=== PATIENT | male | born 1970 | race Caucasian/White ===

== ENCOUNTER 2016-09-26 10:00 | Inpatient (IN) | payer BC ==
[2016-09-26] MEDS ORDERED: Sodium Chloride 0.9% 10 ML Syringe FLUSH PRN ×2 (10:32→15:30)
--- NOTE | 2016-09-26 10:40 | EDM.PDOC ---
ED HISTORY OF PRESENT ILLNESS - General Chief Complaint: Cardiovascular Problem Stated Complaint: SOB, COUGHING, CARDIO CONVERSION YESTERDAY Time Seen by Provider: 09/26/16 10:12 Source: Reports: Patient, Family, RN notes reviewed History Limitations: Reports: No limitations - History of Present Illness INITIAL COMMENTS - FREE TEXT/NARRATIVE: 46-year-old gentleman presents emergency department he complained of shortness of breath, he recently underwent cardioversion yesterday has known atrial fibrillation/flutter he had been in this rhythm for over 6 weeks he is on anticoagulant medication eliquis, he states he did well following his procedure he had a known history of intracardiac blood clot prior to this procedure he is unsure of details we do not have those records we will attempt to obtain. This particular episode of shortness of breath and cough started at 2:00 this morning was worse with exertion does become diaphoretic no nausea vomiting no chest pain no other GI symptoms, did have difficulty with anesthesia following the procedure possibility of aspiration - Related Data Allergies/ADRs: Allergies Allergy/AdvReac Type Severity Reaction Status Date / Time No Known Allergies Allergy Verified 09/03/13 08:38 Home Meds: Home Meds MV-Mn/Iron/FA/Herbal Cmplx#[id number] [Megavite Caplet] 1 tab PO 09/03/13 [History] Apixaban [Eliquis] 5 mg PO BID 09/26/16 [History] Cetirizine [ZyrTEC] 09/26/16 [History] Metoprolol Succinate [Metoprolol Succinate] 100 mg PO DAILY 09/26/16 [History] Verapamil HCl [Verapamil Sr] 120 mg PO DAILY 09/26/16 [History] Past Medical History Cardiovascular History: Reports: Arrhythmia (Atrial fib/flutter), High cholesterol, Hypertension - Past Surgical History Other Cardiovascular Surgeries/Procedures: atrial flutter with cardiovert Social & Family History - Tobacco Use Smoking Status *Q: Never Smoker Second Hand Smoke Exposure: No - Caffeine Use Caffeine Use: Reports: None - Alcohol Use Days Per Week of Alcohol Use: 0 - Recreational Drug Use Recreational Drug Use: No ED ROS GENERAL - Review of Systems Review Of Systems: See Below Constitutional: Reports: diaphoresis. Denies: fever, chills HEENT: Reports: No symptoms Respiratory: Reports: shortness of breath, cough. Denies: sputum Cardiovascular: Reports: Dyspnea on exertion. Denies: Chest pain GI/Abdominal: Reports: No symptoms : Reports: no symptoms Musculoskeletal: Reports: no symptoms Skin: Reports: no symptoms Neurological: Reports: no symptoms ED EXAM, GENERAL - Physical Exam Exam: See Below Free Text/Narrative:: General: Male, not in any distress, alert and oriented x3 HEENT: head is atraumatic normocephalic, eyes pupils equal round reactive to light and accommodation sclera clear no conjunctivitis appreciated. Ears tympanic membranes clear and can landmarks and light reflex are present bilaterally canals are clear. Nose no septal deviation, nares are clear, no blood present. Mouth mucosa is moist and pink no erythema or exudate noted in soft palate, tongue is midline uvula is midline, dentition is intact. Neck: Supple no thyromegaly no tracheal deviation. Nodes: Cervical nodes subclavicular nodes nontender no palpable lymphadenopathy noted. Lungs: Crackles mid to lower lung tena bilaterally CV: Regular rate and rhythm S1 and S2 appreciated no murmurs rubs or gallops noted. Abdomen: Soft, nontender, no palpable masses or organomegaly appreciated, no distention no guarding bowel sounds are present, . Neuro: Cranial nerves II through XII grossly intact Skin: Warm and dry, intact Extremities: No lower extremity edema appreciated, Course - Vital Signs Last Recorded V/S: Last Vital Signs Temp 96.3 F 09/26/16 10:16 Pulse 80 09/26/16 11:30 Resp 24 H 09/26/16 11:30 BP 149/112 H 09/26/16 12:36 Pulse Ox 93 L 09/26/16 11:30 - Orders/Labs/Meds Orders: Active Orders 24 hr Category Date Time Status Cardiac Monitoring [RC] .As Directed Care 09/26/16 10:32 Active EKG Documentation Completion [RC] ASDIRECTED Care 09/26/16 10:33 Active Peripheral IV Care [RC] . DIRECTED Care 09/26/16 10:33 Active Ang Chest [CT] Stat Exams 09/26/16 11:11 Taken Chest 1V Frontal [CR] Stat Exams 09/26/16 10:33 Taken Iopamidol [Isovue-370 (76%)] Med 09/26/16 11:45 Active 100 ml IV . DIRECTED Sodium Chloride 0.9% [Normal Saline] 100 ml Med 09/26/16 11:45 Active IV ASDIRECTED Sodium Chloride 0.9% [Saline Flush] Med 09/26/16 10:32 Active 10 ml FLUSH ASDIRECTED PRN Peripheral IV Insertion Adult [OM.PC] Stat Oth 09/26/16 10:32 Ordered Saline Lock Insert [OM.PC] Stat Oth 09/26/16 10:32 Ordered EKG 12 Lead [EK] Stat Ther 09/26/16 10:33 Ordered Medication Orders Sodium Chloride (Normal Saline) 100 mls @ 4 mls/sec IV ASDIRECTED CHELSI Stop: 09/26/16 23:00 Last Admin: 09/26/16 11:54 Dose: 4 mls/sec Iopamidol (Isovue-370 (76%)) 100 ml IV . DIRECTED CHELSI Stop: 09/26/16 23:00 Last Admin: 09/26/16 11:54 Dose: 100 ml Sodium Chloride (Saline Flush) 10 ml FLUSH ASDIRECTED PRN PRN Reason: Keep Vein Open Last Admin: 09/26/16 10:39 Dose: 10 ml Labs: Laboratory Tests 09/26/16 09/26/16 09/26/16 Range/Units 10:32 10:32 10:44 WBC 9.9 (4.5-11.0) K/uL RBC 5.65 (4.30-5.90) M/uL Hgb 17.3 H (12.0-15.0) g/dL Hct 50.9 (40.0-54.0) % MCV 90 (80-98) fL MCH 31 (27-31) pg MCHC 34 (32-36) % Plt Count 187 (150-400) K/uL Neut % (Auto) 82 H (36-66) % Lymph % (Auto) 11 L (24-44) % [place] % (Auto) 6 (2-6) % Eos % (Auto) 1 L (2-4) % Baso % (Auto) 0 (0-1) % Puncture Site Rt radial ABG pH 7.409 (7.350-7.450) ABG pCO2 33.3 L (35.0-42.0) mmHg ABG pO2 47.0 L (75.0-100.0) mmHg ABG HCO3 20.6 L (22.0-26.0) mmol/L ABG Total CO2 17.4 L (23.0-27.0) mmol/L ABG O2 Saturation 81.9 L (95.0-98.0) % ABG O2 Content 19.5 (15.0-23.0) %vol ABG Base Excess -2.6 mm/L ABG Hemoglobin 17.2 (13.5-18.0) g/dL ABG Oxyhemoglobin 80.9 % ABG Carboxyhemoglobin 0.7 (0.0-1.6) % ABG Methemoglobin 0.5 % Teodoro Test Passed O2 Delivery Device Nasal cannula Oxygen Flow Rate 4 L Sodium 140 (140-148) mmol/L Potassium 4.7 (3.6-5.2) mmol/L Chloride 106 (100-108) mmol/L Carbon Dioxide 28 (21-32) mmol/L Anion Gap 6.3 (5.0-14.0) mmol/L BUN 19 H (7-18) mg/dL Creatinine 1.1 (0.8-1.3) mg/dL Est Cr Clr Drug Dosing 91.12 mL/min Estimated GFR (MDRD) > 60 (>60) Glucose 100 (74-106) mg/dL Calcium 8.5 (8.5-10.1) mg/dL Total Bilirubin 0.8 (0.2-1.0) mg/dL AST 34 (15-37) U/L ALT 59 (12-78) U/L Alkaline Phosphatase 46 (46-116) U/L CK-MB (CK-2) 2.6 (0-3.6) mg/mL Troponin I 0.018 (0.000-0.056) ng/mL [id number] Pept 1101 H (5-125) pg/mL Total Protein 7.9 (6.4-8.2) g/dL Albumin 3.9 (3.4-5.0) g/dL Globulin 4.0 H (2.3-3.5) g/dL Albumin/Globulin Ratio 1.0 L (1.2-2.2) Meds: Medications Generic Name Dose Route Start Last Admin Trade Name Freq PRN Reason Stop Dose Admin Sodium Chloride 100 mls @ 4 mls/sec 09/26/16 11:45 09/26/16 11:54 Normal Saline IV 09/26/16 23:00 4 mls/sec ASDIRECTED CHELSI Administration Iopamidol 100 ml 09/26/16 11:45 09/26/16 11:54 Isovue-370 (76%) IV 09/26/16 23:00 100 ml . DIRECTED CHELSI Administration Sodium Chloride 10 ml 09/26/16 10:32 09/26/16 10:39 Saline Flush FLUSH 10 ml ASDIRECTED PRN Administration Keep Vein Open Discontinued Medications Generic Name Dose Route Start Last Admin Trade Name Freana paula PRN Reason Stop Dose Admin Furosemide 80 mg 09/26/16 12:29 09/26/16 12:36 Lasix IVPUSH 09/26/16 12:30 80 mg ONETIME ONE Administration Nitroglycerin 0.4 mg 09/26/16 10:55 09/26/16 10:57 Nitrostat SL 09/26/16 10:56 0.4 mg ONETIME ONE Administration Nitroglycerin Confirm 09/26/16 10:56 Nitrostat Administered 09/26/16 10:57 Dose 0.4 mg .ROUTE .ST-MED ONE Departure - Departure Time of Disposition: 12:42 Disposition: Admitted As Inpatient 65 Condition: good Clinical Impression: Heart failure with reduced ejection fraction Qualifiers: Heart failure chronicity: acute Qualified Code(s): I50.21 - Acute systolic ( congestive) heart failure Forms: ED Department Discharge - My Orders Last 24 Hours: My Active Orders 09/26/16 10:32 Cardiac Monitoring [RC] .As Directed Sodium Chloride 0.9% [Saline Flush] 10 ml FLUSH ASDIRECTED PRN Peripheral IV Insertion Adult [OM.PC] Stat Saline Lock Insert [OM.PC] Stat 09/26/16 10:33 EKG Documentation Completion [RC] ASDIRECTED Peripheral IV Care [RC] . DIRECTED Chest 1V Frontal [CR] Stat EKG 12 Lead [EK] Stat 09/26/16 11:11 Ang Chest [CT] Stat 09/26/16 11:45 Iopamidol [Isovue-370 (76%)] 100 ml IV . DIRECTED Sodium Chloride 0.9% [Normal Saline] 100 ml IV ASDIRECTED - Assessment/Plan Last 24 Hours: My Active Orders 09/26/16 10:32 Cardiac Monitoring [RC] .As Directed Sodium Chloride 0.9% [Saline Flush] 10 ml FLUSH ASDIRECTED PRN Peripheral IV Insertion Adult [OM.PC] Stat Saline Lock Insert [OM.PC] Stat 09/26/16 10:33 EKG Documentation Completion [RC] ASDIRECTED Peripheral IV Care [RC] . DIRECTED Chest 1V Frontal [CR] Stat EKG 12 Lead [EK] Stat 09/26/16 11:11 Ang Chest [CT] Stat 09/26/16 11:45 Iopamidol [Isovue-370 (76%)] 100 ml IV . DIRECTED Sodium Chloride 0.9% [Normal Saline] 100 ml IV ASDIRECTED Plan: Assessment Acuity = acute Site and laterality = heart failure with reduced ejection fraction complicated the patient with recent history of conversion from atrial fibrillation to sinus rhythm yesterday, hypertension and dyslipidemia Etiology = unclear etiology Manifestations = hypoxemia, dyspnea, cough Location of injury = home Lab values = CBC unremarkable, ABG pH 7.4 PCO2 33.3 PO2 47.0 and bicarbonate 20.6 BNP elevated at 1101 consistent with fluid overload CT scan shows a congestive heart failure pattern no pulmonary embolism noted Plan Call discussed case with hospitalist on-call he agreed to come and evaluate the patient in the ED was given 80 mg of Lasix as well as one 0.4 mg sublingual nitroglycerin Patient was in agreement with the plan all questions were answered, they were instructed to return to the emergency department or call for worsening symptoms. This note was dictated using [employer] voice recognition software please call with any questions.
[2016-09-26] MEDS ORDERED: Nitroglycerin 0.4 MG Tab.SL SL ONE (10:55)
[2016-09-26] MEDS ORDERED: Nitroglycerin 0.4 MG Tab.SL ONE (10:56)
[2016-09-26] MEDS ORDERED: Iopamidol 755 Mg/ML 100 ML Bottle IV SCH (11:45)
[2016-09-26] MEDS ORDERED: Sodium Chloride 0.9% 100 ML IV SCH (11:45)
[2016-09-26] MEDS ORDERED: Furosemide 40 MG/4 ML VIAL IVPUSH ONE (12:29)
[2016-09-26] MEDS ORDERED: Morphine 2 MG/ML Syringe IVPUSH ONE (12:52)
[2016-09-26] MEDS ORDERED: Morphine 2 MG/ML Syringe ONE (12:59)
--- NOTE | 2016-09-26 15:17 | PCM.HP ---
H&P History of Present Illness - General Date of Service: 09/26/16 Admit Problem/Dx: Admission Diagnosis/Problem Admission Diagnosis/Problem Congestive heart failure Source of Information: Patient, Family, Old records, Provider, RN notes reviewed History Limitations: Reports: No limitations - History of Present Illness Initial Comments - Free Text/Narative: Mr. Otero is a 46-year-old gentleman who is admitted through the emergency department with cough and severe shortness of breath secondary to pulmonary edema and underlying congestive heart failure. Approximately 2 months ago was diagnosed with atrial fib flutter, echocardiogram showed decreased left ventricular function with estimated ejection fraction of 35%. Transesophageal echo showed evidence of an atrial thrombus, he was treated for 6 weeks with the Eliquis and return to cardiology yesterday for reassessment. Followup transesophageal echo looked good and he was cardioverted to sinus rhythm. He felt well through the rest the day but early this morning began to note symptoms of cough and shortness of breath. Symptoms progressed through the morning and because of severe shortness of breath presented to the emergency department for further evaluation. Chest x-ray shows evidence of pulmonary edema, CT scan of the chest was obtained showing no evidence of pulmonary embolism documenting bilateral pulmonary edema. He's received nitroglycerin as well as IV morphine and IV Lasix in the emergency department and is starting feeling somewhat better. Currently denies any symptoms of chest pain or pressure, there are no acute ST segment changes noted on EKG in his troponin level is normal. - Related Data Allergies/Adverse Reactions: Allergies Allergy/AdvReac Type Severity Reaction Status Date / Time No Known Allergies Allergy Verified 09/03/13 08:38 Home Medications: Home Meds MV-Mn/Iron/FA/Herbal Cmplx#190 [Megavite Caplet] 1 tab PO DAILY 09/03/13 [ History] Apixaban [Eliquis] 5 mg PO BID 09/26/16 [History] Cetirizine [ZyrTEC] 10 mg PO ASDIRECTED 09/26/16 [History] Metoprolol Succinate [Metoprolol Succinate] 100 mg PO DAILY 09/26/16 [History] Verapamil HCl [Verapamil Sr] 120 mg PO DAILY 09/26/16 [History] Past Medical History Cardiovascular History: Reports: Arrhythmia (Atrial fib/flutter), High cholesterol, Hypertension - Past Surgical History Other Cardiovascular Surgeries/Procedures: atrial flutter with cardiovert Social & Family History - Tobacco Use Smoking Status *Q: Never Smoker Second Hand Smoke Exposure: No - Caffeine Use Caffeine Use: Reports: None - Alcohol Use Days Per Week of Alcohol Use: 0 - Recreational Drug Use Recreational Drug Use: No H&P Review of Systems - Review of Systems: Review Of Systems: See Below General: Reports: no symptoms HEENT: Reports: no symptoms Pulmonary: Reports: shortness of breath, cough. Denies: wheezing, pleuritic chest pain, sputum, hemoptysis Cardiovascular: Reports: dyspnea on exertion, orthopnea, PND. Denies: chest pain, palpitations, edema, lightheadedness, syncope Gastrointestinal: Reports: No symptoms Genitourinary: Reports: no symptoms Musculoskeletal: Reports: no symptoms Skin: Reports: no symptoms Psychiatric: Reports: no symptoms Neurological: Reports: no symptoms Hematologic/Lymphatic: Reports: no symptoms Immunologic: Reports: no symptoms Exam - Exam Exam: See Below - Vital Signs Vital Signs: Last Vital Signs Temp 96.3 F 09/26/16 10:16 Pulse 80 09/26/16 11:30 Resp 24 H 09/26/16 11:30 BP 149/112 H 09/26/16 12:36 Pulse Ox 93 L 09/26/16 11:30 Weight: 265 lb - Exam Quality Assessment: supplemental oxygen, DVT prophylaxis General: alert, oriented, cooperative, moderate distress HEENT: Conjunctiva clear, Hearing intact, Mucosa moist & pink, Nares patent, Normal nasal septum, Posterior pharynx clear, Pupils equal, Pupils reactive Neck: supple, trachea midline, +2 carotid pulse wo bruit Lungs: Rales. No: Clear to auscultation, Normal respiratory effort, Crackles, Rhonchi, Rub, Stridor, Wheezing Cardiovascular: regular rate, regular rhythm, normal S1, normal S2. No: irregular rhythm, bradycardia, tachycardia, systolic murmur, diastolic murmur Abdomen: normal bowel sounds, soft (Male) Exam: No hernia, Normal inspection, Normal prostate, Circumcised Extremities: normal inspection, normal pulses. No: edema Skin: warm, dry, intact Neurological: cranial nerves intact, strength equal bilateral, normal speech, normal tone, sensation intact. No: focal deficit Neuro Extensive - Mental Status: alert, oriented x3, normal mood/affect, normal cognition, memory intact - Patient Data Result Diagrams: 09/26/16 10:32 09/26/16 10:32 *Q Meaningful Use (ADM) - VTE *Q VTE Criteria *Q: VTE Pharmacological Contraindications *Q: High INR Value - VTE Risk Assess *Q Each Risk Factor Represents 1 Point: Age 41 - 59 years, Congestive Heart Failure , Less than 1 Month Total Score 1 Point Risk Factors: 2 Each Risk Factor Represents 2 Points: None Total Score 2 Point Risk Factors: 0 Each Risk Factor Represents 3 Points: None Total Score 3 Point Risk Factors: 0 Each Risk Factor Represents 5 Points: None Total Score 5 Point Risk Factors: 0 Venous Thromboembolism Risk Factor Score *Q: 2 - Stroke *Q Stroke Criteria *Q: - AMI *Q AMI Criteria *Q: Problem List Initiated/Reviewed/Updated: Yes Orders Last 24hrs: Active Orders 24 hr Category Date Time Status Resuscitation Status Routine Resus Stat 09/26/16 14:25 Ordered Medication Orders Sodium Chloride (Normal Saline) 100 mls @ 4 mls/sec IV ASDIRECTED CHELSI Stop: 09/26/16 23:00 Last Admin: 09/26/16 11:54 Dose: 4 mls/sec Iopamidol (Isovue-370 (76%)) 100 ml IV . DIRECTED CHELSI Stop: 09/26/16 23:00 Last Admin: 09/26/16 11:54 Dose: 100 ml Sodium Chloride (Saline Flush) 10 ml FLUSH ASDIRECTED PRN PRN Reason: Keep Vein Open Last Admin: 09/26/16 10:39 Dose: 10 ml Assessment/Plan Comment:: ASSESSMENT AND PLAN CONGESTIVE HEART FAILURE WITH SEVERE PULMONARY EDEMA-recent history of atrial fib flutter and a documented decrease in left ventricular function with estimated ejection fraction of 35%. Status post elective electrical cardioversion yesterday to sinus rhythm, during the night developed cough and severe shortness of breath. Evaluation in the emergency department confirms significant pulmonary edema. -Lasix 80 mg IV given in the ED -Serial troponin levels to rule out myocardial infarction -Discontinue Verapamil -Lasix 40 mg IV in a.m. -Lisinopril 10 mg by mouth twice a day -Continue metoprolol 100 mg daily -Morphine 2 mg IV every 30 minutes as needed for shortness of breath -2 g sodium diet ACUTE HYPOXIC RESPIRATORY FAILURE-secondary to pulmonary edema as noted above -Management as above -Supplemental oxygen as needed ATRIAL FIBRILLATION FLUTTER-status post cardioversion yesterday, remains in sinus rhythm. -Continue Eliquis -Continue metoprolol as above MAINTENANCE ISSUES -DVT prophylaxis; current therapy with Eliquis should provide adequate DVT prophylaxis -GI prophylaxis; not indicated -Eller catheter; not indicated -Nutrition; 2 g sodium -Nicotine dependence; not required CODE STATUS-FULL CODE ADMISSION STATUS-patient will be admitted to inpatient status, expect at least a 2 night hospital stay for evaluation and management of problems as outlined above. At the time of this admission I do not reasonably expected evaluation and management of this problem will require more than a 96 hour hospital stay. DISPOSITION-anticipate discharge to home after the hospital stay. PRIMARY CARE PROVIDER-
[2016-09-26] MEDS ORDERED: Albuterol 0.083% 2.5 MG/3 ML Neb Soln NEB PRN (15:30)
[2016-09-26] MEDS ORDERED: Docusate Sodium 100 MG Cap PO PRN (15:30)
[2016-09-26] MEDS ORDERED: Acetaminophen 325 MG Tab PO PRN (15:30)
[2016-09-26] MEDS ORDERED: Ondansetron 4 MG/2 ML SDV IV PRN (15:30)
[2016-09-26] MEDS ORDERED: Polyethylene Glycol 3350 Powder 17 GM Packet PO PRN (15:30)
[2016-09-26] MEDS ORDERED: Magnesium Hydroxide 400 MG/5 ML Susp 30 ML Cup PO PRN (15:30)
[2016-09-26] MEDS ORDERED: Morphine 2 MG/ML Syringe IVPUSH PRN (15:30)
[2016-09-26] MEDS ORDERED: oxyCODONE 5 MG Tab PO PRN (15:30)
[2016-09-26] MEDS ORDERED: Lisinopril 10 MG Tab PO SCH (21:00)
[2016-09-26] MEDS ORDERED: Apixaban 2.5 MG Tab ONE (21:12)
[2016-09-26] MEDS: Apixaban 5 MG Tab PO SCH (21:14)
[2016-09-27] MEDS ORDERED: Digoxin 500 MCG/2 ML Amp IVPUSH ONE ×2 (04:40→06:46)
[2016-09-27] MEDS ORDERED: Furosemide 40 MG/4 ML VIAL IVPUSH ONE (08:00)
[2016-09-27] MEDS ORDERED: Magnesium Sulfate/Water 2 GM in Premix Bag 1 BAG IV ONE ×2 (09:30→18:00)
--- NOTE | 2016-09-27 10:13 | PCM.PN ---
- General Info Date of Service: 09/27/16 Functional Status: Reports: pain controlled, tolerating diet, urinating - Review of Systems General: Reports: no symptoms Pulmonary: Reports: no symptoms Cardiovascular: Reports: palpitations. Denies: chest pain, dyspnea on exertion , orthopnea, PND, edema, lightheadedness Gastrointestinal: Reports: No symptoms Systems Review Comment:: This patient has felt improved since admission yesterday, much less shortness of breath and cough. Unfortunately during the night went back in atrial fibrillation with rapid ventricular response, he's been given 2 doses of digoxin without significant improvement in heart rate. Further management complicated by borderline hypertension with systolic pressures in the 90s. Discussed with cardiology, we'll load with amiodarone and plan to proceed with cardioversion in the a.m. - Patient Data Vitals - most recent: Last Vital Signs Temp 99 F 09/27/16 05:00 Pulse 134 H 09/27/16 07:10 Resp 23 H 09/27/16 07:10 BP 95/70 09/27/16 07:10 Pulse Ox 95 09/27/16 07:10 Weight - most recent: 262 lb 11.2 oz I&O - last 24 hours: Intake & Output 09/26/16 09/27/16 09/27/16 21:59 06:59 14:59 Output Total 250 Balance -250 Lab Results last 24 hrs: Laboratory Results - last 24 hr 09/26/16 09/27/16 09/27/16 Range/Units 17:05 05:53 05:53 WBC 9.9 (4.5-11.0) K/uL RBC 5.53 (4.30-5.90) M/uL Hgb 16.6 H (12.0-15.0) g/dL Hct 49.7 (40.0-54.0) % MCV 90 (80-98) fL MCH 30 (27-31) pg MCHC 33 (32-36) % Plt Count 183 (150-400) K/uL Neut % (Auto) 73 H (36-66) % Lymph % (Auto) 16 L (24-44) % Webster % (Auto) 7 H (2-6) % Eos % (Auto) 4 (2-4) % Baso % (Auto) 0 (0-1) % Sodium (140-148) mmol/L Potassium (3.6-5.2) mmol/L Chloride (100-108) mmol/L Carbon Dioxide (21-32) mmol/L Anion Gap (5.0-14.0) mmol/L BUN (7-18) mg/dL Creatinine (0.8-1.3) mg/dL Est Cr Clr Drug Dosing mL/min Estimated GFR (MDRD) (>60) Glucose (74-106) mg/dL Calcium (8.5-10.1) mg/dL Magnesium (1.8-2.4) mg/dL Troponin I < 0.017 (0.000-0.056) ng/mL TSH, Ultra Sensitive 1.739 (0.358-3.740) uIU/mL 09/27/16 Range/Units 05:53 WBC (4.5-11.0) K/uL RBC (4.30-5.90) M/uL Hgb (12.0-15.0) g/dL Hct (40.0-54.0) % MCV (80-98) fL MCH (27-31) pg MCHC (32-36) % Plt Count (150-400) K/uL Neut % (Auto) (36-66) % Lymph % (Auto) (24-44) % Webster % (Auto) (2-6) % Eos % (Auto) (2-4) % Baso % (Auto) (0-1) % Sodium 139 L (140-148) mmol/L Potassium 3.9 (3.6-5.2) mmol/L Chloride 105 (100-108) mmol/L Carbon Dioxide 28 (21-32) mmol/L Anion Gap 9.9 (5.0-14.0) mmol/L BUN 19 H (7-18) mg/dL Creatinine 1.2 (0.8-1.3) mg/dL Est Cr Clr Drug Dosing 83.53 mL/min Estimated GFR (MDRD) > 60 (>60) Glucose 107 H (74-106) mg/dL Calcium 8.5 (8.5-10.1) mg/dL Magnesium 1.7 L (1.8-2.4) mg/dL Troponin I < 0.017 (0.000-0.056) ng/mL TSH, Ultra Sensitive (0.358-3.740) uIU/mL Med Orders - Current: Current Medications Acetaminophen (Tylenol) 650 mg PO Q4H PRN PRN Reason: Pain (Mild 1-3)/fever Albuterol (Proventil Neb Soln) 2.5 mg NEB Q4H PRN PRN Reason: Shortness Of Breath/wheezing Apixaban (Eliquis) 5 mg PO BID [facility] Last Admin: 09/26/16 21:14 Dose: 5 mg Docusate Sodium (Colace) 100 mg PO BID PRN PRN Reason: Constipation Magnesium Sulfate 2 gm/ Premix 50 mls @ 25 mls/hr IV ONETIME ONE Stop: 09/27/16 11:29 Amiodarone HCl 150 mg/ (Dextrose/Water) 103 mls @ 600 mls/hr IV .BOLUS ONE PRN Reason: Protocol Stop: 09/27/16 10:04 Amiodarone HCl 450 mg/ (Dextrose/Water) 250 mls @ 33.33 mls/hr IV ASDIRECTED [facility]SI; 1 MG/MIN PRN Reason: Protocol Stop: 09/27/16 16:01 Amiodarone HCl 450 mg/ (Dextrose/Water) 250 mls @ 16.66 mls/hr IV ASDIRECTED [facility]; 0.5 MG/MIN PRN Reason: Protocol Stop: 09/28/16 10:01 Magnesium Sulfate 2 gm/ Premix 50 mls @ 25 mls/hr IV ONETIME ONE Stop: 09/27/16 19:59 Magnesium Hydroxide (Milk Of Magnesia) 30 ml PO Q12H PRN PRN Reason: Constipation Metoprolol Succinate (Toprol Xl) 100 mg PO DAILY [facility] Morphine Sulfate (Morphine) 2 mg IVPUSH Q30M PRN PRN Reason: Dyspnea Ondansetron HCl (Zofran) 4 mg IV Q4H PRN PRN Reason: Nausea/Vomiting Oxycodone HCl (Oxycodone) 5 mg PO Q4H PRN PRN Reason: Pain (moderate 4-6) Polyethylene Glycol (Miralax) 17 gm PO DAILY PRN PRN Reason: Constipation Sodium Chloride (Saline Flush) 10 ml FLUSH ASDIRECTED PRN PRN Reason: Keep Vein Open Discontinued Medications Apixaban (Eliquis) Confirm Administered Dose 5 mg .ROUTE .STK-MED ONE Stop: 09/26/16 21:13 Last Admin: 09/26/16 21:15 Dose: Not Given Digoxin (Lanoxin) 250 mcg IVPUSH ONETIME ONE Stop: 09/27/16 04:41 Last Admin: 09/27/16 04:49 Dose: 250 mcg Digoxin (Lanoxin) 250 mcg IVPUSH ONETIME ONE Stop: 09/27/16 06:47 Last Admin: 09/27/16 07:11 Dose: 250 mcg Furosemide (Lasix) 80 mg IVPUSH ONETIME ONE Stop: 09/26/16 12:30 Last Admin: 09/26/16 12:36 Dose: 80 mg Furosemide (Lasix) 40 mg IVPUSH NOW ONE Stop: 09/27/16 08:01 Sodium Chloride (Normal Saline) 100 mls @ 4 mls/sec IV ASDIRECTED [facility] Stop: 09/26/16 23:00 Last Admin: 09/26/16 11:54 Dose: 4 mls/sec Iopamidol (Isovue-370 (76%)) 100 ml IV . DIRECTED [facility] Stop: 09/26/16 23:00 Last Admin: 09/26/16 11:54 Dose: 100 ml Lisinopril (Prinivil) 10 mg PO BID [facility] Last Admin: 09/26/16 21:14 Dose: 10 mg Morphine Sulfate (Morphine) 2 mg IVPUSH ONETIME ONE Stop: 09/26/16 12:53 Last Admin: 09/26/16 13:04 Dose: 2 mg Morphine Sulfate (Morphine) Confirm Administered Dose 2 mg .ROUTE .STK-MED ONE Stop: 09/26/16 13:00 Last Admin: 09/26/16 13:04 Dose: Not Given Nitroglycerin (Nitrostat) 0.4 mg SL ONETIME ONE Stop: 09/26/16 10:56 Last Admin: 09/26/16 10:57 Dose: 0.4 mg Nitroglycerin (Nitrostat) Confirm Administered Dose 0.4 mg .ROUTE .STK-MED ONE Stop: 09/26/16 10:57 Sodium Chloride (Saline Flush) 10 ml FLUSH ASDIRECTED PRN PRN Reason: Keep Vein Open Last Admin: 09/26/16 10:39 Dose: 10 ml - Exam Quality Assessment: supplemental oxygen, DVT prophylaxis General: alert, oriented, cooperative, no acute distress Lungs: Clear to auscultation, Normal respiratory effort Cardiovascular: no murmurs, irregular rhythm, tachycardia. No: bradycardia Abdomen: bowel sounds present, soft, no tenderness, no distension Extremities: no edema Skin: warm, dry, intact - Problem List Review Problem List Initiated/Reviewed/Updated: Yes - My Orders Last 24 Hours: My Active Orders 09/26/16 14:25 Resuscitation Status Routine 09/26/16 15:30 Patient Status [ADT] Routine Height and Weight [RC] DAILY Intake and Output [RC] QSHIFT Notify Provider Vital Signs [RC] ASDIRECTED Oxygen Therapy [RC] Q12H RT Aerosol Therapy [RC] ASDIRECTED Up With Assistance [RC] ASDIRECTED VTE/DVT Education [RC] Per Unit Routine Vital Signs [RC] Q2H Acetaminophen [Tylenol] 650 mg PO Q4H PRN Albuterol [Proventil Neb Soln] 2.5 mg NEB Q4H PRN Docusate Sodium [Colace] 100 mg PO BID PRN Magnesium Hydroxide [Milk of Magnesia] 30 ml PO Q12H PRN Morphine 2 mg IVPUSH Q30M PRN Ondansetron [Zofran] 4 mg IV Q4H PRN Polyethylene Glycol 3350 [MiraLAX] 17 gm PO DAILY PRN Sodium Chloride 0.9% [Saline Flush] 10 ml FLUSH ASDIRECTED PRN oxyCODONE 5 mg PO Q4H PRN Saline Lock Insert [OM.PC] Routine VTE Pharmacological Contraindications [AST] Per Unit Routine 09/27/16 09:30 Magnesium Sulfate/Water [Magnesium Sulfate 2 GM in Water 50 ML] 2 gm Premix Bag 1 bag IV ONETIME 09/27/16 09:54 Amiodarone [Cordarone] 150 mg Dextrose 5% in Water 100 ml IV .BOLUS 09/27/16 10:00 EKG Documentation Completion [RC] ASDIRECTED Amiodarone 450 MG in D5W @ 1 MG/MIN(250ml) Amiodarone [Cordarone] 450 mg Dextrose 5% in Water 241 ml IV ASDIRECTED 09/27/16 16:00 Amiodarone [Cordarone] 450 mg Dextrose 5% in Water 241 ml IV ASDIRECTED 09/27/16 18:00 Magnesium Sulfate/Water [Magnesium Sulfate 2 GM in Water 50 ML] 2 gm Premix Bag 1 bag IV ONETIME 09/27/16 Breakfast NPO Now [Nothing per Oral Now Diet] [DIET] 09/28/16 05:00 BASIC METABOLIC PANEL,BMP [CHEM] Timed CBC WITH AUTO DIFF [HEME] Timed MAGNESIUM [CHEM] Timed 09/28/16 05:11 EKG 12 Lead [EK] AM - Plan Plan:: ASSESSMENT AND PLAN CONGESTIVE HEART FAILURE WITH SEVERE PULMONARY EDEMA-recent history of atrial fib flutter and a documented decrease in left ventricular function with estimated ejection fraction of 35%. Status post elective electrical cardioversion Wednesday to sinus rhythm. Symptomatically improved since admission with much less shortness of breath and cough. Management complicated by recurrent atrial fibrillation with rapid ventricular response. -Hold Lasix, lisinopril, and metoprolol because of hypotension -Discontinue Verapamil -Morphine 2 mg IV every 30 minutes as needed for shortness of breath -2 g sodium diet, n.p.o. after midnight ACUTE HYPOXIC RESPIRATORY FAILURE-secondary to pulmonary edema as noted above -Management as above -Supplemental oxygen as needed ATRIAL FIBRILLATION WITH RVR-status post cardioversion Wednesday, remained in sinus rhythm until early this morning and then redeveloped atrial fibrillation with rapid ventricular response. -Continue Eliquis -Hold metoprolol because of hypotension -Loading dose of amiodarone, 150 mg IV, followed by 6 hours at 1 mg per minute, followed by 18 hours at 0.5 mg per minute -N.p.o. after midnight for possible cardioversion in the a.m. MAINTENANCE ISSUES -DVT prophylaxis; current therapy with Eliquis should provide adequate DVT prophylaxis -GI prophylaxis; not indicated -Eller catheter; not indicated -Nutrition; 2 g sodium -Nicotine dependence; not required CODE STATUS-FULL CODE ADMISSION STATUS-patient will be admitted to inpatient status, expect at least a 2 night hospital stay for evaluation and management of problems as outlined above. At the time of this admission I do not reasonably expected evaluation and management of this problem will require more than a 96 hour hospital stay. DISPOSITION-anticipate discharge to home after the hospital stay. PRIMARY CARE PROVIDER-
[2016-09-27] MEDS ORDERED: Amiodarone In Dextrose,Iso-Osm 150 MG in Premix Bag 1 BAG IV ONE ×2 (10:15)
[2016-09-27] MEDS: Apixaban 5 MG Tab PO SCH ×2 (11:46→20:50)
[2016-09-27] MEDS: Metoprolol Succinate 50 MG Tab.ER PO SCH (11:46)
--- NOTE | 2016-09-28 09:15 | PCM.PN ---
- General Info Date of Service: 09/28/16 Functional Status: Reports: pain controlled, ambulating - Review of Systems Pulmonary: Denies: shortness of breath Cardiovascular: Denies: chest pain Systems Review Comment:: no acute events overnight. Patient remains in atrial fibrillation but his heart rate has slowed significantly with the amiodarone infusion. He has tolerated this infusion well with no obvious side effects. No complaints of chest pain or shortness of breath. Blood pressures have remained on the low side of normal but stable. - Patient Data Vitals - most recent: Last Vital Signs Temp 35.5 C 09/28/16 08:00 Pulse 106 H 09/28/16 05:38 Resp 16 09/28/16 08:00 BP 130/96 H 09/28/16 08:00 Pulse Ox 99 09/28/16 08:00 Weight - most recent: 119.159 kg I&O - last 24 hours: Intake & Output 09/27/16 09/28/16 09/28/16 22:59 06:59 14:59 Intake Total 520 201 Output Total 500 300 Balance 20 -99 Lab Results last 24 hrs: Laboratory Results - last 24 hr 09/28/16 09/28/16 Range/Units 05:59 05:59 WBC 6.9 (4.5-11.0) K/uL RBC 5.74 (4.30-5.90) M/uL Hgb 17.4 H (12.0-15.0) g/dL Hct 50.9 (40.0-54.0) % MCV 89 (80-98) fL MCH 30 (27-31) pg MCHC 34 (32-36) % Plt Count 180 (150-400) K/uL Neut % (Auto) 57 (36-66) % Lymph % (Auto) 27 (24-44) % Keith % (Auto) 10 H (2-6) % Eos % (Auto) 6 H (2-4) % Baso % (Auto) 1 (0-1) % Sodium 141 (140-148) mmol/L Potassium 4.2 (3.6-5.2) mmol/L Chloride 107 (100-108) mmol/L Carbon Dioxide 28 (21-32) mmol/L Anion Gap 6.4 (5.0-14.0) mmol/L BUN 22 H (7-18) mg/dL Creatinine 1.2 (0.8-1.3) mg/dL Est Cr Clr Drug Dosing 83.53 mL/min Estimated GFR (MDRD) > 60 (>60) Glucose 106 (74-106) mg/dL Calcium 8.3 L (8.5-10.1) mg/dL Magnesium 2.0 (1.8-2.4) mg/dL Med Orders - Current: Current Medications Acetaminophen (Tylenol) 650 mg PO Q4H PRN PRN Reason: Pain (Mild 1-3)/fever Albuterol (Proventil Neb Soln) 2.5 mg NEB Q4H PRN PRN Reason: Shortness Of Breath/wheezing Apixaban (Eliquis) 5 mg PO BID [facility] Last Admin: 09/27/16 20:50 Dose: 5 mg Docusate Sodium (Colace) 100 mg PO BID PRN PRN Reason: Constipation Amiodarone HCl 450 mg/ (Dextrose/Water) 250 mls @ 16.66 mls/hr IV ASDIRECTED [facility]; 0.5 MG/MIN PRN Reason: Protocol Stop: 09/28/16 10:31 Last Admin: 09/27/16 20:47 Dose: 0.5 mg/min, 16.66 mls/hr Magnesium Hydroxide (Milk Of Magnesia) 30 ml PO Q12H PRN PRN Reason: Constipation Metoprolol Succinate (Toprol Xl) 100 mg PO DAILY [facility] Last Admin: 09/27/16 11:46 Dose: Not Given Morphine Sulfate (Morphine) 2 mg IVPUSH Q30M PRN PRN Reason: Dyspnea Ondansetron HCl (Zofran) 4 mg IV Q4H PRN PRN Reason: Nausea/Vomiting Oxycodone HCl (Oxycodone) 5 mg PO Q4H PRN PRN Reason: Pain (moderate 4-6) Polyethylene Glycol (Miralax) 17 gm PO DAILY PRN PRN Reason: Constipation Sodium Chloride (Saline Flush) 10 ml FLUSH ASDIRECTED PRN PRN Reason: Keep Vein Open Discontinued Medications Apixaban (Eliquis) Confirm Administered Dose 5 mg .ROUTE .STK-MED ONE Stop: 09/26/16 21:13 Last Admin: 09/26/16 21:15 Dose: Not Given Digoxin (Lanoxin) 250 mcg IVPUSH ONETIME ONE Stop: 09/27/16 04:41 Last Admin: 09/27/16 04:49 Dose: 250 mcg Digoxin (Lanoxin) 250 mcg IVPUSH ONETIME ONE Stop: 09/27/16 06:47 Last Admin: 09/27/16 07:11 Dose: 250 mcg Furosemide (Lasix) 80 mg IVPUSH ONETIME ONE Stop: 09/26/16 12:30 Last Admin: 09/26/16 12:36 Dose: 80 mg Furosemide (Lasix) 40 mg IVPUSH NOW ONE Stop: 09/27/16 08:01 Last Admin: 09/27/16 11:45 Dose: Not Given Sodium Chloride (Normal Saline) 100 mls @ 4 mls/sec IV ASDIRECTED [facility]HEL[facility] Stop: 09/26/16 23:00 Last Admin: 09/26/16 11:54 Dose: 4 mls/sec Magnesium Sulfate 2 gm/ Premix 50 mls @ 25 mls/hr IV ONETIME ONE Stop: 09/27/16 11:29 Last Admin: 09/27/16 10:26 Dose: 25 mls/hr Amiodarone HCl/Dextrose 150 mg (/ Premix) 100 mls @ 600 mls/hr IV .BOLUS ONE PRN Reason: Protocol Stop: 09/27/16 10:24 Last Admin: 09/27/16 10:31 Dose: 600 mls/hr Amiodarone HCl 450 mg/ (Dextrose/Water) 250 mls @ 33.33 mls/hr IV ASDIRECTED CHELSI; 1 MG/MIN PRN Reason: Protocol Stop: 09/27/16 16:31 Last Titration: 09/27/16 16:45 Dose: 0.5 mg/min, 16.66 mls/hr Magnesium Sulfate 2 gm/ Premix 50 mls @ 25 mls/hr IV ONETIME ONE Stop: 09/27/16 19:59 Last Admin: 09/27/16 17:46 Dose: 25 mls/hr Iopamidol (Isovue-370 (76%)) 100 ml IV . DIRECTED CHELSI Stop: 09/26/16 23:00 Last Admin: 09/26/16 11:54 Dose: 100 ml Lisinopril (Prinivil) 10 mg PO BID [facility] Last Admin: 09/26/16 21:14 Dose: 10 mg Morphine Sulfate (Morphine) 2 mg IVPUSH ONETIME ONE Stop: 09/26/16 12:53 Last Admin: 09/26/16 13:04 Dose: 2 mg Morphine Sulfate (Morphine) Confirm Administered Dose 2 mg .ROUTE .STK-MED ONE Stop: 09/26/16 13:00 Last Admin: 09/26/16 13:04 Dose: Not Given Nitroglycerin (Nitrostat) 0.4 mg SL ONETIME ONE Stop: 09/26/16 10:56 Last Admin: 09/26/16 10:57 Dose: 0.4 mg Nitroglycerin (Nitrostat) Confirm Administered Dose 0.4 mg .ROUTE .STK-MED ONE Stop: 09/26/16 10:57 Sodium Chloride (Saline Flush) 10 ml FLUSH ASDIRECTED PRN PRN Reason: Keep Vein Open Last Admin: 09/26/16 10:39 Dose: 10 ml - Exam Quality Assessment: supplemental oxygen General: alert, oriented, cooperative, no acute distress Neck: supple Lungs: Clear to auscultation, Normal respiratory effort Cardiovascular: regular rate, irregular rhythm. No: murmurs Abdomen: soft, no distension Extremities: no edema, no cyanosis Skin: warm, dry Psy/Mental Status: alert, normal affect - Problem List Review Problem List Initiated/Reviewed/Updated: Yes - My Orders Last 24 Hours: My Active Orders 09/28/16 10:00 Amiodarone [Cordarone] 400 mg PO BID - Plan Plan:: ASSESSMENT AND PLAN CONGESTIVE HEART FAILURE WITH SEVERE PULMONARY EDEMA - recent history of atrial fib flutter and a documented decrease in left ventricular function with estimated ejection fraction of 35%. I suspect the patient lost his atrial kick after the cardioversion and went into pulmonary edema. clinically doing much better at this point with volume status appearing to be normal at this time. -Hold Lasix, lisinopril because of hypotension -continue metoprolol -Discontinue Verapamil -Morphine 2 mg IV every 30 minutes as needed for shortness of breath -2 g sodium diet ACUTE HYPOXIC RESPIRATORY FAILURE - of oxygen as of this morning -Management as above -Supplemental oxygen as needed ATRIAL FIBRILLATION WITH RVR - status post cardioversion 3 days ago, remained in sinus rhythm until early yesterday morning. Status post second cardioversion this morning and in sinus rhythm. -Continue Eliquis -restart metoprolol -complete amiodarone infusion early this morning -start oral amiodarone this morning MAINTENANCE ISSUES -DVT prophylaxis; current therapy with Eliquis should provide adequate DVT prophylaxis -GI prophylaxis; not indicated -Eller catheter; not indicated -Nutrition; 2 g sodium DISPOSITION-anticipate discharge to home after the hospital stay, probably tomorrow if stable overnight Alfred Mason M.D.
--- NOTE | 2016-09-28 09:40 | CR ---
Moderate cardiomegaly. Airspace disease within the left lung and hazy density within the right midlu ng zone. Trace right minor fissure fluid. No definitive pleural effusions. Findings may indicate inf ectious etiology. Correlate for CHF.
--- NOTE | 2016-09-28 10:26 | PCM.PRNOTE ---
- Free Text/Narrative Note: Date of service: 09/28/2016 Proposed procedure: Synchronized cardioversion Preprocedure diagnosis: Recurrent atrial fibrillation with rapid ventricular response Post procedure diagnosis: Recurrent atrial fibrillation with rapid ventricular response Indication for procedure: Calderon was evaluated today regarding atrial fibrillation with and rapid ventricular response. Synchronized cardioversion was recommended as a primary treatment. Description of the procedure: Calderon is currently located in ICU room 121. We have reviewed the potential risks of electrical cardioversion including but not limited to: Superficial skin dillard, ineffective treatment, other arrhythmias, reaction to anesthesia medications or potentially asystole. The benefits of the procedure have also been reviewed. At this time the patient wishes to proceed with electrical cardioversion. All necessary pre-procedure information and paperwork has been provided and completed, respectively. The patient was connected to cardioversion pads and monitoring equipment per protocol. Prior to the procedure, a timeout was held with nursing and anesthesia present to confirm the right patient and right procedure. Once appropriate anesthesia was applied the machine was charged to 150 Joules and an electrical shock was applied. The patient was successfully converted to normal sinus rhythm and this was confirmed with a post procedure EKG. They will remain in their current location until anesthesia has dissipated and the patient is more awake and alert. Anticoagulation should be continued for at least one month post cardioversion. There were no immediate complications noted from the procedure. lAfred Mason M.D.
[2016-09-28] MEDS: Apixaban 5 MG Tab PO SCH ×2 (10:42→20:47)
[2016-09-28] MEDS: Amiodarone 200 MG Tab PO SCH ×2 (10:43→20:47)
[2016-09-28] MEDS: Metoprolol Succinate 50 MG Tab.ER PO SCH (10:43)
[2016-09-29] MEDS: Metoprolol Succinate 50 MG Tab.ER PO SCH (08:51)
[2016-09-29] MEDS: Apixaban 5 MG Tab PO SCH (08:52)
[2016-09-29] MEDS: Amiodarone 200 MG Tab PO SCH (08:52)
[2016-09-29 08:53] VITALS: BP 124/93
--- NOTE | 2016-09-29 09:37 | PCM.DCSUM1 ---
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 - Discharge Data Discharge Date: 09/29/16 Discharge Disposition: Home, Self-Care 01 Condition: Good - Discharge Diagnosis/Problem(s) (1) Heart failure with reduced ejection fraction SNOMED Code(s): 929337729, [id number] ICD Code: I50.20 - UNSPECIFIED SYSTOLIC (CONGESTIVE) HEART FAILURE Status: Acute Qualifiers: Heart failure chronicity: acute Qualified Code(s): I50.21 - Acute systolic (congestive) heart failure (2) Atrial fibrillation with rapid ventricular response SNOMED Code(s): 632319769361944 ICD Code: I48.91 - UNSPECIFIED ATRIAL FIBRILLATION Status: Acute - Patient Summary/Data Hospital Course: Yandel presented to the emergency room with acute onset shortness of breath. This occurred night after having an elective cardioversion. Workup in the emergency room was suggestive of acute pulmonary edema and he received a dose of furosemide. He was admitted to the hospital for additional management. He did require some supplemental oxygen after admission but this was able to be weaned off. He did not require additional doses of furosemide. Unfortunately the night after admission he went into atrial fibrillation with rapid ventricular response with his presenting rhythm being normal sinus rhythm. This case was discussed with the on-call seo specialist in [place] and amiodarone was recommended because his blood pressure was on the low side. He was given the 150 mg bolus which did cause some transient hypotension. He then received the usual 1 mg infusion over 6 hours and 0.5 mg infusion over the next 18 hours. The infusion was completed on hospital day 2 and he remained in atrial fibrillation but had good rate control acceptable blood pressure. He had a transesophageal echo a couple of days prior to admission and had been on anticoagulation so we felt it was safe to proceed with elective cardioversion the day before discharge. He received a single shock and was converted to normal sinus rhythm. We transitioned him to oral amiodarone at this point in he has remained in normal sinus rhythm since that time. The plan is for a taper of the amiodarone over the next month with 400 mg twice daily for 2 weeks then 400 mg daily for 2 weeks then 200 mg daily thereafter. I suspect that the heart failure was caused by loss of atrial kick after the cardioversion. His volume status has remained normal during hospital stay. I do not believe that he needs additional diuretics. His blood pressure has been excellent usually amiodarone and metoprolol and his verapamil has been discontinued. He'll be discharged home with a stress test to be completed in about 10 days. He will have followup with the internal medicine team here in town as well as with his seo specialist. - Patient Instructions Diet: Heart Healthy Diet Activity: As Tolerated Driving: May Drive Today Showering/Bathing: May Shower Notify Provider of: Fever, Increased Pain, Nausea and/or Vomiting Other/Special Instructions: 1. You were in the hospital for management of congestive heart failure caused by the loss of atrial kick after the cardioversion. The top chambers of your heart that were not pumping blood into the lower chambers (ventricles) efficiently and fluid backed up into your lungs. Also during the hospital stay your heart returned to atrial fibrillation with a fast rate. We have converted your rhythm back to normal with the use of amiodarone and electrical shock called cardioversion. 2. Amiodarone taper - 400 mg twice daily for 2 weeks then 400 mg daily for 2 weeks then 200 mg daily thereafter. 3. Followup with Dr. Brady or his internal medicine team in approximately 2 weeks. 4. You will be scheduled for a stress test on October 09. This will be a treadmill stress test. You should not take your metoprolol until after your test. 5. Please contact me by calling the javascript front end developer of the hospital this week if you have questions or concerns. I will be available through Wednesday. 6. Please seek medical attention if you develop a sudden onset of shortness of breath, palpitations or chest pain - Discharge Plan Prescriptions/Med Rec: Amiodarone [Cordarone] 400 mg PO BID #84 tablet Home Medications: Home Meds MV-Mn/Iron/FA/Herbal Cmplx#[id number] [Megavite Caplet] 1 tab PO DAILY 09/03/13 [ History] Apixaban [Eliquis] 5 mg PO BID 09/26/16 [History] Cetirizine [ZyrTEC] 10 mg PO ASDIRECTED 09/26/16 [History] Metoprolol Succinate 100 mg PO DAILY 09/26/16 [History] Amiodarone [Cordarone] 400 mg PO BID #84 tablet 09/29/16 [Rx] Patient Handouts: Atrial Fibrillation, Amiodarone tablets Referrals: Marc Brady MD [Physician] - (2 weeks - f/u hospital stay, f/u stress test from 10/09 and establish care with internal medicine) - Discharge Summary/Plan Comment DC Time >30 min.: No (25) - Patient Data Vitals - Most Recent: Last Vital Signs Temp 37.2 C 09/28/16 21:54 Pulse 68 09/29/16 08:51 Resp 12 09/29/16 06:00 BP 124/93 H 09/29/16 08:51 Pulse Ox 98 09/29/16 06:00 Weight - Most Recent: 119.159 kg I&O - Last 24 hours: Intake & Output 09/28/16 09/29/16 09/29/16 22:59 06:59 14:59 Output Total 225 300 Balance -225 -300 Lab Results - Last 24 hrs: Laboratory Results - last 24 hr 09/29/16 Range/Units 04:45 Sodium 141 (140-148) mmol/L Potassium 4.3 (3.6-5.2) mmol/L Chloride 106 (100-108) mmol/L Carbon Dioxide 29 (21-32) mmol/L Anion Gap 6.5 (5.0-14.0) mmol/L BUN 21 H (7-18) mg/dL Creatinine 1.0 (0.8-1.3) mg/dL Est Cr Clr Drug Dosing 100.23 mL/min Estimated GFR (MDRD) > 60 (>60) Glucose 103 (74-106) mg/dL Calcium 8.5 (8.5-10.1) mg/dL Med Orders - Current: Current Medications Acetaminophen (Tylenol) 650 mg PO Q4H PRN PRN Reason: Pain (Mild 1-3)/fever Albuterol (Proventil Neb Soln) 2.5 mg NEB Q4H PRN PRN Reason: Shortness Of Breath/wheezing Amiodarone HCl (Cordarone) 400 mg PO BID [facility] Last Admin: 09/29/16 08:52 Dose: 400 mg Apixaban (Eliquis) 5 mg PO BID [facility] Last Admin: 09/29/16 08:52 Dose: 5 mg Docusate Sodium (Colace) 100 mg PO BID PRN PRN Reason: Constipation Magnesium Hydroxide (Milk Of Magnesia) 30 ml PO Q12H PRN PRN Reason: Constipation Metoprolol Succinate (Toprol Xl) 100 mg PO DAILY [facility] Last Admin: 09/29/16 08:51 Dose: 100 mg Morphine Sulfate (Morphine) 2 mg IVPUSH Q30M PRN PRN Reason: Dyspnea Ondansetron HCl (Zofran) 4 mg IV Q4H PRN PRN Reason: Nausea/Vomiting Oxycodone HCl (Oxycodone) 5 mg PO Q4H PRN PRN Reason: Pain (moderate 4-6) Polyethylene Glycol (Miralax) 17 gm PO DAILY PRN PRN Reason: Constipation Sodium Chloride (Saline Flush) 10 ml FLUSH ASDIRECTED PRN PRN Reason: Keep Vein Open Discontinued Medications Apixaban (Eliquis) Confirm Administered Dose 5 mg .ROUTE .STK-MED ONE Stop: 09/26/16 21:13 Last Admin: 09/26/16 21:15 Dose: Not Given Digoxin (Lanoxin) 250 mcg IVPUSH ONETIME ONE Stop: 09/27/16 04:41 Last Admin: 09/27/16 04:49 Dose: 250 mcg Digoxin (Lanoxin) 250 mcg IVPUSH ONETIME ONE Stop: 09/27/16 06:47 Last Admin: 09/27/16 07:11 Dose: 250 mcg Furosemide (Lasix) 80 mg IVPUSH ONETIME ONE Stop: 09/26/16 12:30 Last Admin: 09/26/16 12:36 Dose: 80 mg Furosemide (Lasix) 40 mg IVPUSH NOW ONE Stop: 09/27/16 08:01 Last Admin: 09/27/16 11:45 Dose: Not Given Sodium Chloride (Normal Saline) 100 mls @ 4 mls/sec IV ASDIRECTED CHELSI Stop: 09/26/16 23:00 Last Admin: 09/26/16 11:54 Dose: 4 mls/sec Magnesium Sulfate 2 gm/ Premix 50 mls @ 25 mls/hr IV ONETIME ONE Stop: 09/27/16 11:29 Last Admin: 09/27/16 10:26 Dose: 25 mls/hr Amiodarone HCl/Dextrose 150 mg (/ Premix) 100 mls @ 600 mls/hr IV .BOLUS ONE PRN Reason: Protocol Stop: 09/27/16 10:24 Last Admin: 09/27/16 10:31 Dose: 600 mls/hr Amiodarone HCl 450 mg/ (Dextrose/Water) 250 mls @ 33.33 mls/hr IV ASDIRECTED CHELSI; 1 MG/MIN PRN Reason: Protocol Stop: 09/27/16 16:31 Last Titration: 09/27/16 16:45 Dose: 0.5 mg/min, 16.66 mls/hr Amiodarone HCl 450 mg/ (Dextrose/Water) 250 mls @ 16.66 mls/hr IV ASDIRECTED CHELSI; 0.5 MG/MIN PRN Reason: Protocol Stop: 09/28/16 10:31 Last Admin: 09/27/16 20:47 Dose: 0.5 mg/min, 16.66 mls/hr Magnesium Sulfate 2 gm/ Premix 50 mls @ 25 mls/hr IV ONETIME ONE Stop: 09/27/16 19:59 Last Admin: 09/27/16 17:46 Dose: 25 mls/hr Iopamidol (Isovue-370 (76%)) 100 ml IV . DIRECTED CHELSI Stop: 09/26/16 23:00 Last Admin: 09/26/16 11:54 Dose: 100 ml Lisinopril (Prinivil) 10 mg PO BID CHELSI Last Admin: 09/26/16 21:14 Dose: 10 mg Morphine Sulfate (Morphine) 2 mg IVPUSH ONETIME ONE Stop: 09/26/16 12:53 Last Admin: 09/26/16 13:04 Dose: 2 mg Morphine Sulfate (Morphine) Confirm Administered Dose 2 mg .ROUTE .STK-MED ONE Stop: 09/26/16 13:00 Last Admin: 09/26/16 13:04 Dose: Not Given Nitroglycerin (Nitrostat) 0.4 mg SL ONETIME ONE Stop: 09/26/16 10:56 Last Admin: 09/26/16 10:57 Dose: 0.4 mg Nitroglycerin (Nitrostat) Confirm Administered Dose 0.4 mg .ROUTE .STK-MED ONE Stop: 09/26/16 10:57 Sodium Chloride (Saline Flush) 10 ml FLUSH ASDIRECTED PRN PRN Reason: Keep Vein Open Last Admin: 09/26/16 10:39 Dose: 10 ml *Q Meaningful Use (DIS) - VTE *Q VTE Criteria *Q: VTE Pharmacological Contraindications *Q: High INR Value - Stroke *Q Stroke Criteria *Q: - AMI *Q AMI Criteria *Q:
--- NOTE | 2016-10-02 08:39 | PCM.SN ---
- Free Text/Narrative Note: Yandel's Nohemy called last night and said he went back into atrial fibrillation with rates in the 80-100 range. No symptoms such as palpitations, shortness of breath or chest pain. I talked to the Cardiology folks in [place] this morning. Their concern is that sinus rhythm may be difficult to maintain if he has gone back into this rhythm even while taking amiodarone. Since he is asymptomatic they recommended outpatient follow up next week for re-evaluation. I called and talked to Nohemy this morning, Yandel is still in atrial fib with a controlled rate and feels normal. We discussed the possibility of stopping amio as recommended by cardiology on the phone but she was nervous since he has good rate control at this time. We elected to continue the medication for now since he has been on it only a short while and risk of adverse reaction is small at this time. She will call the cardiology office in [place] to set up an appointment for next week. I advised her to seek medical attention if he does develop symptoms such as shortness of breath or chest pain prior to that appointment. She has my cell phone number is she has any questions. Alfred Mason MD
== END 2016-09-29 10:30 | disposition home or self-care (01) | DRG 194 ==
LOC: JP.ED 10:00 → JP.ICU 14:24
PROVIDERS: ADMIT Hospitalist; ATTEND Internal Medicine
PROC: 5A2204Z Restoration of Cardiac Rhythm, Single (ICD-10-PCS; principal; 2016-09-28)
DX: I50.21 Acute systolic (congestive) heart failure (principal); J96.01 Acute respiratory failure with hypoxia; I48.91 Unspecified atrial fibrillation; Z79.01 Long term (current) use of anticoagulants
CPT/HCPCS: 36415; 36600; 71010; 71010-26; 71275; 80048; 80053; 82553; 82803; 83735; 83880; 84443; 84484; 85025; 86618; 92960; 93005; 96361; 96374; 96375; 99232; 99238; 99285-25; A9270-GY; J0282; J1160; J1940; J2270; J3475; J7030; J7050; J7060; Q9967

== ENCOUNTER 2021-07-10 09:50 | Day surgery (SDC) | payer BC ==
[~2021-07-10 09:50] MED LIST: Midazolam 1 MG/ML 2 ML SDV ONE; Propofol 200 MG/20 ML SDV ONE; fentaNYL 100 MCG/2 ML SDV ONE
[2021-07-10] MEDS ORDERED: Sodium Chloride 0.9% 1,000 ML IV SCH (10:30)
[2021-07-10 12:21] VITALS: PULSE 73
[2021-07-10 12:27] VITALS: BP 104/64
--- NOTE | 2021-07-10 13:25 | OR ---
DATE OF PROCEDURE: 07/10/2021 SURGEON: Shaq Moss MD PROCEDURE: Colonoscopy. FINDINGS: Normal colonoscopy. COMPLICATIONS: None. HEADING SAW OPERATOR: None. ANESTHETIC: MAC. PREOPERATIVE DIAGNOSIS: Screening colonoscopy. POSTOPERATIVE DIAGNOSIS: Screening colonoscopy. RISKS: Risks, benefits, alternatives, and limitations including, but not limited to, infection, bleeding, perforation, false positives, and false negatives were explained to the patient who wished to proceed. PROCEDURE IN DETAIL: The patient was placed in left lateral decubitus position. Digital rectal exam was performed without abnormality. The scope was introduced and advanced atraumatically to the ileocecal valve. A photo was taken. The scope was brought back to the ascending, transverse, descending colon, and retroflexed. No evidence of old or new blood. No masses. No polyps. No abnormalities on retroflexion. The prep was marginally acceptable, approximately 90% of the luminal surface could be seen. Greater than 8 minutes was spent removing the scope. The patient tolerated the procedure well. Shaq Moss MD /[id number]
== END 2021-07-10 12:46 | disposition home or self-care (01) ==
LOC: JP.SDS 09:50
PROVIDERS: ATTEND Surgery
DX: Z12.11 Encounter for screening for malignant neoplasm of colon (principal); I50.9 Heart failure, unspecified; I48.92 Unspecified atrial flutter
CPT/HCPCS: 45378; J2250; J2704; J3010